=== PATIENT | male | born 1980 | race Caucasian/White ===

== ENCOUNTER → 2020-09-16 11:53 | Outpatient (CLI) | payer OTHER, SELFPAY ==
--- NOTE | ~2020-09-16 | XR_ITS ---
EXAMINATION: XR shoulder LT min 2V EXAM DATE: 09/16/2020 12:13 INDICATION: Pain in left shoulder x 3 months, limited range of motion. No known recent injury. TECHNIQUE: The following left shoulder projections obtained: frontal projection with internal rotatio n, frontal projection with external rotation, Grashey, and scapular Y view (4+ views). There is no p rior study for comparison. FINDINGS: No evidence of left shoulder rotator cuff calcific tendinosis. Unremarkable left glenoh umeral and acromioclavicular joints. There are no acute fractures or dislocations identified. There is no subcutaneous gas. The soft tissue is unremarkable. There are no radiopaque foreign bodies. IMPRESSION: 1. Unremarkable left shoulder exam. Reviewed, dictated and finalized at location B. [employer]
== END ==
PROVIDERS: PCP Physician Assistant; Visit Provider Physician Assistant
DX: M25.512 Pain in left shoulder (principal)
CPT/HCPCS: 73030

== ENCOUNTER 2025-10-11 11:20 | Day surgery (SDC) | payer OTHER, SELFPAY ==
[2025-09-29 09:47] VITALS: BMI 27.5
[2025-10-11 11:50] VITALS: BMI 27.9
[2025-10-11 11:52] VITALS: BP 121/95; PULSE 80; RESP 16; TEMP 36.8; O2SAT 99
--- NOTE | 2025-10-11 11:55 | P.PNAN_ITS ---
Anes - Initial Pre Proc Eval Procedure: Operation Date: 10/11/25 13:00 Proposed Procedures p Screening Colonoscopy - Chago Negron MD Date/Time: 10/11/25 11:55 Surgeon: Chago Negron MD Pre Op Diagnosis: Screening Patient Data Age: 45 Gender: M Height: 1.78 m Weight: 88.3 kg Last Vital Signs Temp 98.3 F 10/11/25 11:52 Pulse 80 10/11/25 11:52 Resp 16 10/11/25 11:52 BP 121/95 H 10/11/25 11:52 Pulse Ox 99 10/11/25 11:52 O2 Del Method Room Air 10/11/25 11:52 Allergies Allergy/AdvReac Type Severity Reaction Status Date / Time No Known Allergies Allergy Verified 10/11/25 11:34 Home Medications ?Medication ?Instructions ?Recorded ?Confirmed ?Type minoxidil-finasteride 1 tablet PO DAILY 09/29/25 1 12/12/24 History Patient hx anesthesia problems: none Family hx anesthesia problems: none Results Review: All pre-operative results and documents have been reviewed as part of the pre- operative evaluation. [facility] Social History Social History Smoking status: Current some day smoker Tobacco type: cigars Alcohol intake: current Drinks per week: 3 Substance use type: does not use Living arrangements: with family Spiritual care concerns: No Anes - Eval Final PreProcedure Day of Procedure 10/11/25 11:55 Heart: regular rate and rhythm Lungs: clear to auscultation Airway: Mallampati scale class II Neurological: alert and oriented Last oral intake: >/= 8 hours ASA classification: I Anesthetic plan: proceed Anesthesia type and monitoring: general Results Review: All pre-operative results and documents have been reviewed as part of the pre- operative evaluation. Informed Consent: The patient's anesthetic plan and its attendant risks and benefits were discussed with the patient/family/POA. Questions were solicited and answers provided to the satisfaction of the patient/family/POA.
[2025-10-11] MEDS: LACTATED RINGERS 1,000 ML 150 ML IV CONT (11:56)
--- NOTE | 2025-10-11 11:57 | P.HP_ITS ---
H&P: HPI History of Present Illness Date/Time: 10/11/25 11:57 Chief Complaint: Screening colonoscopy Narrative: This is the patient's first colonoscopy. There are no GI symptoms and there is no family history of colorectal cancer. his mother had colon polyps at age 60. Review of Systems Review of Systems: All systems reviewed & are unremarkable except as noted in HPI and below PMFSH Social History Social History Smoking status: Current some day smoker Tobacco type: cigars Alcohol intake: current Drinks per week: 3 Substance use type: does not use Living arrangements: with family Spiritual care concerns: No Meds Home Medications and Allergies Home Medications ?Medication ?Instructions ?Recorded ?Confirmed ?Type minoxidil-finasteride 1 tablet PO DAILY 09/29/25 1 12/12/24 History Allergies Allergy/AdvReac Type Severity Reaction Status Date / Time No Known Allergies Allergy Verified 10/11/25 11:34 Vital Signs Vital Signs - 24 hr 10/11/25 11:52 Temperature 98.3 F Pulse Rate 80 Respiratory Rate 16 Blood Pressure 121/95 H Pulse Oximetry 99 Oxygen Delivery Room Air Exam Const: General: cooperative and healthy appearing Resp: Effort & Inspection: normal respiratory effort and able to speak in complete sentences Auscultation: clear to auscultation bilaterally Cardio: Rate: regular rate Rhythm: regular rhythm GI: Inspection: normal to inspection GI Palp: No No hepatosplenomegaly present Auscultation: normal bowel sounds Rectal Exam: deferred Skin: General skin exam: normal color Psych: Appearance: grossly normal Mental Status: mental status grossly normal Assessment and Plan Assessment and plan (1) Family history of polyps in the colon: Code(s): Z83.719 - Family history of colon polyps, unspecified Status: Acute Assessment and Plan: The patient is deemed a good candidate for the procedure. Consent signed. Will proceed.
[2025-10-11 12:19] VITALS: BP 102/82; PULSE 89; RESP 15; O2SAT 98
[2025-10-11 12:29] VITALS: BP 106/91; PULSE 82; RESP 18; O2SAT 99
[2025-10-11 12:39] VITALS: BP 121/95; PULSE 79; RESP 16; O2SAT 99
--- NOTE | 2025-10-11 13:00 | SUR.PHASEII ---
PATIENT READY FOR DISCHARGE BUT WAITING ON RIDE HOME.
--- OUTSIDE RECORDS SUMMARY | 2025-10-11 13:00 | XMS_ITS | Data Portability ---
Author Organization [facility] Address [address] [facility] [place] [address] Care Team Providers Care Wind Project Manager Name Role Phone BRAULIO MELENDEZ Primary Care Provider Unavailab le Assessment No assessment recorded. Plan of Treatment Reminders Order Date Submit Date Provider Last Modified By Organization Details Last Modified Time Details Appointments ANY 15 2025 03:30P M CHRISTEN Vasquez Not available Not available Not available Lab TSH + free T4, serum 2024 025 MILAGROS Del Valle, 2022 Shona Rosado, [address], [place], [address], 01/15/2025 09:08:50 lipid panel, serum or plasma 2024 025 MILAGROS Del Valle, 2022 Shona Rosaod, [address], [place], [address], 01/15/2025 09:08:51 CBC w/ auto diff 2024 025 MILAGROS Del Valle, 2022 Shona Rosado, [address], [place], [address], 01/15/2025 09:08:56 CMP, serum or plasma 2024 025 MILAGROS Del Valle, 2022 Shona Rosado, [address], [place], [address], 01/15/2025 09:08:52 cobalamin and folate panel, serum 2024 025 MILAGROS Del Valle, 2022 Shona Rosado, [address], [place], [address], 01/15/2025 09:08:53 PSA, total, serum or plasma 2024 025 [place] [facility], 2022 Shona Rosado, [address], [place], [address], 01/15/2025 09:08:57 HbA1c (hemoglob in A1c), blood 2024 025 [place] [facility], 2022 Shona Rosado, [address], [place], [address], 01/15/2025 09:08:55 Referral None recorded. Procedures colonosco py screening (PROC) 2024 025 [id number] Jakob jung MD, [address], [address], [place], [address], 08/27/2025 12:03:08 Surgeries None recorded. Imaging None recorded. Medication Orders venlafaxi ne ER 37.5 mg capsule,e xtended release 24 hr 2024 025 [id number], [address] [facility], [place], [place], [id number], 12/21/2024 16:28:41 Patient TargetsNo targets recorded. Patient Instructions Encounter Date Encounter Id Patient Instructions Last Modified By Organization Details Last Modified Time 12/21/2024 [id number] A healthy lifestyle: care instructions Not available 01/09/2025 20:05:08 01/26/2025 [id number] A healthy lifestyle: care instructions Not available 01/26/2025 17:00:22 Reason for Referral None Reported. Results Created Date Observation Date Name Description Value Unit Range Abnormal Flag Note LastModifiedBy Organization Detail LastModifiedTime 01/15/20 25 01/15/2025 TSH+F REE T4 TSH 2.050 uIU/m L 0.450- 4.500 Not Available [facility] ([facility]) [address] [facility], [place], [address], 01/15/2025 09:08:50 01/15/20 25 01/15/2025 TSH+F REE T4 T4,free(dire ct) 1.06 NG/dL 0.82-1 .77 Not Available [facility] ([facility]) [address] [facility], [place], [address], 01/15/2025 09:08:50 01/15/20 25 01/15/2025 LIPID PANEL WITH LDL/H DL RATIO cholesterol, total 212 mg/dL 100-19 9 above high normal Not Available [facility] ([facility]) [address] [place], [address], 01/15/2025 09:08:51 01/15/20 25 01/15/2025 LIPID PANEL WITH LDL/H DL RATIO triglyceride s 91 mg/dL 0-149 Not Available [facility] ([facility]) [address] [place], [address], 01/15/2025 09:08:51 01/15/20 25 01/15/2025 LIPID PANEL WITH LDL/H DL RATIO HDL cholesterol 47 mg/dL >39 Not Available [facility] ([facility]) [address] [place], [address], 01/15/2025 09:08:51 01/15/20 25 01/15/2025 LIPID PANEL WITH LDL/H DL RATIO VLDL cholesterol pradip 16 mg/dL 5-40 Not Available [facility] ([facility]) [address] [place], [address], 01/15/2025 09:08:51 01/15/20 25 01/15/2025 LIPID PANEL WITH LDL/H DL RATIO LDL chol calc ([facility]) 149 mg/dL 0-99 above high normal Not Available [facility] ([facility]) [address] [place], [address], 01/15/2025 09:08:51 01/15/20 25 01/15/2025 LIPID PANEL WITH LDL/H DL RATIO LDL/HDL ratio 3.2 ratio 0.0-3. 6 LDL/H DL Ratio Men Women 1/2 Avg.R isk 1.0 1.5 Avg.R isk 3.6 3.2 2X Avg.R isk 6.2 5.0 3X Avg.R isk 8.0 6.1 Not Available [facility] ([facility]) [address] [place], [address], 01/15/2025 09:08:51 01/15/20 25 01/15/2025 COMP. METAB OLIC PANEL (14) glucose 86 mg/dL 70-99 Not Available [facility] ([facility]) [address] [place], [address], 01/15/2025 09:08:52 01/15/20 25 01/15/2025 COMP. METAB OLIC PANEL (14) BUN 13 mg/dL 6-24 Not Available [facility] ([facility]) [address] [place], [address], 01/15/2025 09:08:52 01/15/20 25 01/15/2025 COMP. METAB OLIC PANEL (14) creatinine 1.04 mg/dL 0.76-1 .27 Not Available [facility] ([facility]) [address] [place], [address], 01/15/2025 09:08:52 01/15/20 25 01/15/2025 COMP. METAB OLIC PANEL (14) eGFR 90 mL/mi n/1.7 3 >59 Not Available [facility] ([facility]) [address] [place], [address], 01/15/2025 09:08:52 01/15/20 25 01/15/2025 COMP. METAB OLIC PANEL (14) BUN/creatini ne ratio 13 9-20 Not Available [facility] ([facility]) [address] [place], [address], 01/15/2025 09:08:52 01/15/20 25 01/15/2025 COMP. METAB OLIC PANEL (14) sodium 139 mmol/ L 134-14 4 Not Available [facility] ([facility]) [address] [place], [address], 01/15/2025 09:08:52 01/15/20 25 01/15/2025 COMP. METAB OLIC PANEL (14) potassium 4.2 mmol/ L 3.5-5. 2 Not Available [facility] ([facility]) [address] [place], [address], 01/15/2025 09:08:52 01/15/20 25 01/15/2025 COMP. METAB OLIC PANEL (14) chloride 101 mmol/ L 96-106 Not Available [facility] ([facility]) [address] [place], [address], 01/15/2025 09:08:52 01/15/20 25 01/15/2025 COMP. METAB OLIC PANEL (14) carbon dioxide, total 24 mmol/ L 20-29 Not Available [facility] ([facility]) [address] [place], [address], 01/15/2025 09:08:52 01/15/20 25 01/15/2025 COMP. METAB OLIC PANEL (14) calcium 9.4 mg/dL 8.7-10 .2 Not Available [facility] ([facility]) [address] [place], [address], 01/15/2025 09:08:52 01/15/20 25 01/15/2025 COMP. METAB OLIC PANEL (14) protein, total 7.1 g/dL 6.0-8. 5 Not Available [facility] ([facility]) [address] [place], [address], 01/15/2025 09:08:52 01/15/20 25 01/15/2025 COMP. METAB OLIC PANEL (14) albumin 4.4 g/dL 4.1-5. 1 Not Available [facility] ([facility]) [address] [facility] [place], [address], 01/15/2025 09:08:52 01/15/20 25 01/15/2025 COMP. METAB OLIC PANEL (14) globulin, total 2.7 g/dL 1.5-4. 5 Not Available [facility] ([facility]) [address] [facility] [place], [address], 01/15/2025 09:08:52 01/15/20 25 01/15/2025 COMP. METAB OLIC PANEL (14) bilirubin, total 0.6 mg/dL 0.0-1. 2 Not Available [facility] ([facility]) [address] [facility] [place], [address], 01/15/2025 09:08:52 01/15/20 25 01/15/2025 COMP. METAB OLIC PANEL (14) alkaline phosphatase 78 IU/L 44-121 Not Available [facility] ([facility]) [address] [place], [address], 01/15/2025 09:08:52 01/15/20 25 01/15/2025 COMP. METAB OLIC PANEL (14) AST (SGOT) 34 IU/L 0-40 Not Available [facility] ([facility]) [address] [place], [address], 01/15/2025 09:08:52 01/15/20 25 01/15/2025 COMP. METAB OLIC PANEL (14) ALT (SGPT) 25 IU/L 0-44 Not Available [facility] ([facility]) [address] [facility], [place], [address], 01/15/2025 09:08:52 01/15/20 25 01/15/2025 VITAM IN B12 AND FOLAT E vitamin B12 381 pg/mL 232-12 45 Not Available [facility] ([facility]) [address] [facility], [place], [address], 01/15/2025 09:08:53 01/15/20 25 01/15/2025 VITAM IN B12 AND FOLAT E folate (folic acid), serum 11.6 NG/mL >3.0 A serum folat e asiya ntrat ion of less than 3.1 ng/mL is consi dered to repre sent clini pradip defic iency . Not Available [facility] ([facility]) [address] [facility], [place], [address], 01/15/2025 09:08:53 01/15/2001/15/2025 HEMOG LOBIN A1C hemoglobin A1C 5.3 % 4.8-5. 6 Predi abete s: 5.7 - 6.4 Diabe mikie: >6.4 Glyce rod contr ol for adult s with diabe mikie: <7.0 Not Available [facility] ([facility]) [address] [facility], [place], [address], 01/15/2025 09:08:54 01/15/20 25 01/15/2025 CBC WITH DIFFE RENTI AL/PL ATELE T WBC 6.7 x10e3 /uL 3.4-10 .8 Not Available [facility] ([facility]) [address] [place], [address], 01/15/2025 09:08:55 01/15/20 25 01/15/2025 CBC WITH DIFFE RENTI AL/PL ATELE T RBC 4.50 x10e6 /uL 4.14-5 .80 Not Available [facility] ([facility]) [address] [place], [address], 01/15/2025 09:08:55 01/15/20 25 01/15/2025 CBC WITH DIFFE RENTI AL/PL ATELE T hemoglobin 13.7 g/dL 13.0-1 7.7 Not Available [facility] ([facility]) [address] [facility], [place], [address], 01/15/2025 09:08:55 01/15/20 25 01/15/2025 CBC WITH DIFFE RENTI AL/PL ATELE T hematocrit 40.2 % 37.5-5 1.0 Not Available [facility] ([facility]) [address] [facility], [place], [address], 01/15/2025 09:08:55 01/15/20 25 01/15/2025 CBC WITH DIFFE RENTI AL/PL ATELE T MCV 89 fL 79-97 Not Available [facility] ([facility]) [address] [facility], [place], [address], 01/15/2025 09:08:55 01/15/20 25 01/15/2025 CBC WITH DIFFE RENTI AL/PL ATELE T MCH 30.4 pg 26.6-3 3.0 Not Available [facility] ([facility]) [address] [facility], [place], [address], 01/15/2025 09:08:55 01/15/20 25 01/15/2025 CBC WITH DIFFE RENTI AL/PL ATELE T MCHC 34.1 g/dL 31.5-3 5.7 Not Available [facility] ([facility]) [address] [place], [address], 01/15/2025 09:08:55 01/15/20 25 01/15/2025 CBC WITH DIFFE RENTI AL/PL ATELE T RDW 12.9 % 11.6-1 5.4 Not Available [facility] ([facility]) [address] [facility], [place], [address], 01/15/2025 09:08:55 01/15/20 25 01/15/2025 CBC WITH DIFFE RENTI AL/PL ATELE T platelets 295 x10e3 /uL 150-45 0 Not Available [facility] ([facility]) [address] [facility], [place], [address], 01/15/2025 09:08:55 01/15/20 25 01/15/2025 CBC WITH DIFFE RENTI AL/PL ATELE T neutrophils 44 % notest ab. Not Available [facility] ([facility]) [address] [facility], [place], [address], 01/15/2025 09:08:55 01/15/20 25 01/15/2025 CBC WITH DIFFE RENTI AL/PL ATELE T lymphs 43 % notest ab. Not Available [facility] ([facility]) [address] [facility], [place], [address], 01/15/2025 09:08:55 01/15/20 25 01/15/2025 CBC WITH DIFFE RENTI AL/PL ATELE T monocytes 8 % notest ab. Not Available [facility] ([facility]) [address] [facility], [place], [address], 01/15/2025 09:08:55 01/15/20 25 01/15/2025 CBC WITH DIFFE RENTI AL/PL ATELE T eos 4 % notest ab. Not Available [facility] ([facility]) [address] [facility], [place], [address], 01/15/2025 09:08:55 01/15/20 25 01/15/2025 CBC WITH DIFFE RENTI AL/PL ATELE T basos 1 % notest ab. Not Available [facility] ([facility]) [address] [facility], [place], [address], 01/15/2025 09:08:55 01/15/20 25 01/15/2025 CBC WITH DIFFE RENTI AL/PL ATELE T neutrophils (absolute) 3.0 x10e3 /uL 1.4-7. 0 Not Available [facility] ([facility]) [address] [facility], [place], [address], 01/15/2025 09:08:55 01/15/20 25 01/15/2025 CBC WITH DIFFE RENTI AL/PL ATELE T lymphs (absolute) 2.9 x10e3 /uL 0.7-3. 1 Not Available [facility] ([facility]) [address] [facility], [place], [address], 01/15/2025 09:08:55 01/15/20 25 01/15/2025 CBC WITH DIFFE RENTI AL/PL ATELE T monocytes(ab solute) 0.5 x10e3 /uL 0.1-0. 9 Not Available [facility] ([facility]) [address] [place], [address], 01/15/2025 09:08:55 01/15/20 25 01/15/2025 CBC WITH DIFFE RENTI AL/PL ATELE T eos (absolute) 0.3 x10e3 /uL 0.0-0. 4 Not Available [facility] ([facility]) [address] [facility], [place], [address], 01/15/2025 09:08:55 01/15/20 25 01/15/2025 CBC WITH DIFFE RENTI AL/PL ATELE T baso (absolute) 0.1 x10e3 /uL 0.0-0. 2 Not Available [facility] ([facility]) [address] [facility], [place], [address], 01/15/2025 09:08:55 01/15/20 25 01/15/2025 CBC WITH DIFFE RENTI AL/PL ATELE T immature granulocytes 0 % notest ab. Not Available [facility] ([facility]) [address] [place], [address], 01/15/2025 09:08:55 01/15/20 25 01/15/2025 CBC WITH DIFFE RENTI AL/PL ATELE T immature grans (abs) 0.0 x10e3 /uL 0.0-0. 1 Not Available [facility] ([facility]) [address] [facility], [place], [address], 01/15/2025 09:08:55 01/15/20 25 01/15/2025 PROST ATE-S PECIF IC AG prostate specific Ag 0.2 NG/mL 0.0-4. 0 Camilla ECLIA metho dolog y. Accor ding to the Ameri can Urolo gical Assoc iatio n, Serum PSA shoul d decre ase and remai n at undet ectab le level s after radic al prost atect key. The AUA defin es bioch emica l recur rence as an initi al PSA value 0.2 ng/mL or great er follo wed by a subse quent confi rmato ry PSA value 0.2 ng/mL or great er. Value s obtai dean with diffe rent assay metho ds or kits canno t be used inter chandra eamichelle . Resul ts canno t be inter prete d as absol minor evide nce of the prese nce or absen ce of lexy ashby se. Not Available [facility] ([facility]) [address] [facility], [place], [address], 01/15/2025 09:08:57 Result Notes None recorded. Problems Name Problem SNOMED Code Status Onset Date Resolution Date Notes Provider Name and Address Organization Details Recorded Time Body mass index 25-29 - overweight 618669344 Active 2024 Andria Uribe MA null, [place] - [facility] 15:40:15 Long-term drug therapy Active 2024 CHRISTEN Vasquez Attn: Rupali solomon,[address] [facility], [place], [address], [place] [facility] 20:04:29 Positive screening for depression on PHQ-9 (Patient Health Questionnai re 9) 3775034361729 00 Active 2024 CHRISTEN Vasquez Attn: Rupali solomon,[address] [facility], [place], [address], [place] - [facility] 20:04:57 Overweight 537772507 Active 2024 CHRISTEN Vasquez Attn: Accountin g,[address] [place], [address], [facility] 18:07:11 Problem Notes None recorded. Medical Equipment None Reported. Allergies No known drug allergies Medications Name Sig Start Date Stop Date Status Note LastModified by Organization Details LastModified Time venlafaxine ER 37.5 mg capsule,exten ded release 24 hr Take 1 capsule every day by oral route in the morning. 025 active Not Available Not Available Not Avai lable Vitals Date Recorded Systolic And Diastolic Provider Name and Address Organization Details Last Updated DateTime 12/21/2024 140/80 mm[Hg] CHRISTEN Vasquez Attn: Accounting,[address] [place], [address], [facility] 12/21/2024 16:24:46 Date Recorded Body weight Body mass index (BMI) Body height Respiratory rate Oxygen saturation Heart rate Systolic And Diastolic Provider Name and Address Organization Details Last Updated DateTime 5 08636.7 4 g 27.5 kg/m2 177.8 cm 18 /min 99 % 85 /min 138/82 mm[Hg] Andria Uribe MA [facility] 15:46:54 Date Recorded Body height Body mass index (BMI) Body weight Respiratory rate Oxygen saturation Heart rate Systolic And Diastolic Provider Name and Address Organization Details Last Updated DateTime 5 177.8 cm 26.8 kg/m2 78524.7 7 g 18 /min 97 % 88 /min 126/82 mm[Hg] Andria Uribe MA [facility] 5 16:21:55 Social History Question Answer Notes LastModified by Organizat ion Details LastModified Time Tobacco Smoking Status Never Smoker Andria Uribe MA null, [facility] 12/21/2024 16:27:04 Do You Have An Advance Directive? No Information not available 12/21/2024 Are You Blind Or Do You Have Difficulty Seeing? Yes Glasses Information not available 12/21/2024 What Is Your Level Of Caffeine Consumption? Moderate Coffee Information not available 12/21/2024 In The 14 Days Before Symptom Onset, Have You Had Close Contact With A Laboratory-confir med COVID-19 While That Case Was Ill? No Information not available 12/21/2024 In The 14 Days Before Symptom Onset, Have You Had Close Contact With A Person Who Is Under Investigation For COVID-19 While That Person Was Ill? No Information not available 12/21/2024 Have You Been To An Area Known To Be High Risk For COVID-19? No Information not available 12/21/2024 Are You Deaf Or Do You Have Serious Difficulty Hearing? No Information not available 12/21/2024 What Type Of Diet Are You Following? REGULAR Information not available 12/21/2024 Are There Any Guns Present In Your Home? No Information not available 12/21/2024 What Was The Date Of Your Most Recent Tobacco Screening? 01/26/2025 Information not available 01/26/2025 Do You Use Your Seat Belt Or Car Seat Routinely? Yes Information not available 12/21/2024 Do You Have Smoke And Carbon Monoxide Detectors In Your Home? Yes Information not available 12/21/2024 Do You Use Sunscreen Routinely? Yes Information not available 12/21/2024 Has Tobacco Cessation Counseling Been Provided? No Information not available 12/21/2024 Sex: Male Functional Status Question Answer Note LastModified by Organizat ion Details LastModified Time Do you use any illicit or recreational drugs? No Information not available 12/21/2024 Do you or have you ever used any other forms of tobacco or nicotine? No Information not available 12/21/2024 What is your level of alcohol consumption? Occasional Information not available 12/21/2024 Are you currently employed? Yes Information not available 12/21/2024 Are you able to care for yourself independently? Yes Information not available 12/21/2024 What is your exercise level? Occasional rare Information not available 12/21/2024 Mental Status Question Answer Note LastModified by Organization D etails LastModified Time Do you feel stressed (tense, restless, nervous, or anxious, or unable to sleep at night)? [id number] Information not available 12/21/2024 Family History Relationship Description Onset Age of this Age Resolved Age Notes LastModified by Organization Details LastModified Time Father Hypertensive disorder [email or web address] Not available 2024 16:26:32 Father Hypercholest erolemia [email or web address] Not available 2024 16:26:37 Medical History Condition Response Coronary Artery Disease N Other N High Blood Pressure N Atrial Fibrillation N Thyroid Problems N Kidney or Bladder Problems N GI Problems N Depression N COPD N Blood Clots N Have you had a mammogram in the last yea r? N Skin Problems N Anemia N Heart Attack ([place]) N Diabetes N Anxiety Disorder N Muscle, Joint, or Bone Problems N Seizures/Epilepsy N Have you had a colonoscopy in the last 1 0 years? N Acid Reflux (GERD) N Cancer N Stroke N Asthma N Allergies N Have you had a PSA blood test in the las t year? N High Cholesterol N Hepatitis N Liver Disease N Headaches N Osteoporosis N Heart Failure N Immunizations Vaccine Type Date Status Note Provider Nam e and Address Organization Details Recorded Time MMR 2 completed Andria Uribe [place] null, [place] [facility] 12/21/2024 15:42:16 COVID-19, mRNA, LNP-S, PF, 100 mcg/0.5mL dose or 50 mcg/0.25mL dose 2 completed Andria Uribe [place] null, [place] [facility] 12/21/2024 15:42:16 COVID-19, mRNA, LNP-S, PF, 100 mcg/0.5mL dose or 50 mcg/0.25mL dose 1 completed JAREK Bartholomew, [place] - [facility] 12/21/2024 15:42:16 COVID-19, mRNA, LNP-S, PF, 100 mcg/0.5mL dose or 50 mcg/0.25mL dose 1 completed JAREK Bartholomew, [place] - [facility] 12/21/2024 15:42:16 Td (adult), 2 Lf tetanus toxoid, preservative free, adsorbed 2 completed Andria Uribe MA [facility] 12/21/2024 15:42:16 Past Encounters Encounter ID Performer Location Encounter Start Date Encounter Closed Date Diagnosis/Indication Diagnosis SNOMED-CT Code Diagnosis ICD10 Code Diagnosis IMO Codes Diagnosis Note [id number] Duke Anderson MD [facility] [address] [place] [address] 12/21/2024 15:23:18 12/21/2024 16:30:41 Body mass index 25-29 - overweight 333864038 Z68.27 BMI is 27.5 Adult heal th examination 380536499 Z00.01 Annual wellness exam completed all labs ordered fasting Cholesterol screening 27 0539783 Z13.220 All fasting labs ordered Diabetes m ellitus screening 829472254 Z13.1 Screening for malignant neoplasm of prostate 412066467 Z12.5 Annual PSA due Long-term drug therapy 444105950 Z79.891 cmp, cbc and b12, folate labs are due Thyroid di sorder screening 667213278 Z13.29 Thyroid screening ordered Major depr essive disorder 164297922 F32.9 Patient has been off of the Wellbutrin therapy he used to be on. We will start a trial of venlafaxin e 37.5 mg extended release once daily and follow-up January 26 Positive s creening for depression on PHQ-9 (Patient Health Questionnaire 9) 7062049059 68791 Z13.31 Patient scored a 21 on screening today. This high score revolves around his depression exacerbati on in the need for new treatment. We are starting Effexor low dose and will titrate up appropriat maliha if tolerated. Screening for malignant neoplasm of colon 079135642 Z12.11 Baseline colonoscop y is due Obesity 168380640 E66.9 BMI 27.5 [id number] Duke Anderson MD [facility] [employer] [address] [place] [address] 01/26/2025 16:14:05 02/04/2025 15:27:51 Body mass index 25-29 - overweight 783440504 Z68.26 BMI 26.8 Overweight 515139595 E66 .3 Major depr essive disorder 239721968 F32.9 Continue venlafaxin e ER 37.5 mg daily patient has had very positive response to treatment and would like to continue this dosing. Positive s creening for depression on PHQ-9 (Patient Health Questionnaire 9) 1296287773 24891 Z13.31 Scoring is down to 9 from 21 after starting venlafaxin e therapy. Great improvemen t in his short amount of time Health Concerns Section Related Observation LastModified by Organization Detai ls LastModified Time None Recorded Concern Status LastModified by Organization Details LastModified Time None Recorded Advance Directives Directive N: Payers Insurance Date Sequence Insurance Name Policy Number Policy Quarles Covered Member ID Quarles Member ID Guarantor Name 02/11/2025 1 [facility] [id number] [employer] [id number] [employer] Notes Date Note Type Note Provider Name and Address Organization Details Recorded Time 12/21/19 25 text/htm l Anxiety/DepressionReported by PatientHPIFor quality, patient reportssymptoms worse in the evening,symptoms worse during the day, andmood worse. For associated symptoms, patient reportsdepressionbut reportsdenies homicidal ideations,no significant weight gain,no significant weight loss,no visual/auditory hallucinations,no delusions, andmaintaining functionality. For severity, patient reportsdenies suicidal ideations,able to maintain relationships, anddoes not interfere with activities of daily living. For duration, patient reportsfrequentandsymptoms lasting over 2 weeks. For context, patient reportsno major life stressors. For modifying factors, patient reportsmedications as directed. CHRISTEN Vasquez Attn: Accounting,[address] [place], [address], [facility] 01/09/2025 20:05:28 01/27/20 25 text/htm l Anxiety/DepressionReported by PatientHPIFor associated symptoms, patient reportsdepressionbut reportsdenies homicidal ideations,no significant weight gain,no significant weight loss,no visual/auditory hallucinations,no delusions, andmaintaining functionality. For quality, patient reportssymptoms improved. For severity, patient reportsdenies suicidal ideations,able to maintain relationships, anddoes not interfere with activities of daily living. For duration, patient reportsfrequentandsymptoms lasting over 2 weeks. For context, patient reportsno major life stressors. For modifying factors, patient reportsmedications as directed.Patient is following up on starting a new medication venlafaxine ER 37.5 mg daily for major depressive disorder. He is having improvement in mood that is noticeable and he is pleased with this dosing CHRISTEN Vasquez Attn: Accounting,[address] [place], [address], [facility] 02/10/2025 18:08:01
--- OUTSIDE RECORDS SUMMARY | 2025-10-11 13:00 | XMS_ITS | Clinical Summary ---
Author Organization [facility] Care Team Providers Care Design Engineering Intern Name Role Phone Unavailable Primary Care Provider Unavailabl e Social History Tobacco Use Types Packs/Day Years Used Date Smoking Tobacco: Never Assessed Sex and Gender Information Value Date Recorded Sex Assigned at Not on file Legal Sex Male 10:03 AM [employer] Gender Identity Not on file Sexual Orientation Not on file Plan of Treatment Health Maintenance Due Date Last Done Comments Hepatitis C Virus (HCV) Screening 1978 TdaP Immunization 1978 Hepatitis B Immunization (1 of 3 - 19+ 3-dose series) 1997 Cologuard 2023 Colonoscopy 2023 Colorectal Cancer Screening 2023 Immunochemical Fecal Occult Blood 2023 Influenza Immunization (#1) 2025 SARS-COV-2 Immunization ( season) 2025 Respiratory Syncytial Virus (RSV) Immunization (Adult) (1 - 1-dose 75+ series) 2053 DTaP/Tdap/Td Immunization Discontinued 07/02/1992 Human Papillomavirus (HPV) Immunization Aged Out No longer eligible b ased on patient's age to complete this topic Meningococcal Immunization (ACWY) Aged Out No longer eligible based on patient's age to complete this topic Pneumococcal Immunization Combined Aged Out No longer eligible based on patient's age to complete this topic Rotavirus Immunization Aged Out No lo nger eligible based on patient's age to complete this topic
--- OUTSIDE RECORDS SUMMARY | 2025-10-11 13:00 | XMS_ITS | Data Portability ---
Author Organization [place] - [facility] [email or web address], Main Office Address [address] [place] [address] Assessment No assessment recorded. Plan of Treatment Reminders Order Date Submit Date Provider Last Modified By Organization Details Last Modified Time Details Appointments None recorded. Lab testosteron e, free + total, serum 2022 023 [email or web address] 4 [facility], 2022 Shona Rosado, [address], [place], [address], 3 16:55:07 PSA, serum or plasma 2022 023 [email or web address] 4 [facility], 2022 Shona Rosado, [address], [place], [address], 3 16:55:06 urinalysis complete, reflex culture 2022 023 [email or web address] [facility], 2022 Shona Rosado, [address], [place], [address], 3 16:50:48 Referral None recorded. Procedures None recorded. Surgeries None recorded. Imaging None recorded. Medication Orders None recorded. Patient TargetsNo targets recorded. Patient InstructionsNo instructions recorded. Reason for Referral None Reported. Results Created Date Observation Date Name Description Value Unit Range Abnormal Flag Note LastModifiedBy Organization Detail LastModifiedTime 03/17/2003/18/2021 HbA1c (hemo globi n A1c), blood hemoglobin A1C 5.4 % 4.8-5. 6 Predi abete s: 5.7 - 6.4 Diabe mikie: >6.4 Glyce rod contr ol for adult s with diabe mikie: <7.0 Not Available [facility] ([facility]) [address] [facility] [place], [address], 03/18/2021 06:14:44 03/17/20 21 03/18/2021 lipid panel , serum cholesterol, total 231 mg/dL 100-19 9 above high normal Not Available [facility] ([facility]) [address] [facility] [place], [address], 03/18/2021 06:14:43 03/17/20 21 03/18/2021 lipid panel , serum triglyceride s 198 mg/dL 0-149 above high normal Not Available [facility] ([facility]) [address] [facility] [place], [address], 03/18/2021 06:14:43 03/17/20 21 03/18/2021 lipid panel , serum HDL cholesterol 47 mg/dL >39 Not Available [facility] ([facility]) [address] [place], [address], 03/18/2021 06:14:43 03/17/20 21 03/18/2021 lipid panel , serum VLDL cholesterol pradip 36 mg/dL 5-40 Not Available [facility] ([facility]) [address] [place], [address], 03/18/2021 06:14:43 03/17/20 21 03/18/2021 lipid panel , serum LDL chol calc ([facility]) 148 mg/dL 0-99 above high normal Not Available [facility] ([facility]) [address] [place], [address], 03/18/2021 06:14:43 03/17/20 21 03/18/2021 lipid panel , serum comment: cloth handler Not Available [facility] ([facility]) [address] [place], [address], 03/18/2021 06:14:43 03/17/20 21 03/18/2021 lipid panel , serum T. chol/HDL ratio 4.9 ratio 0.0-5. 0 T. Chol/ HDL Ratio Men Women 1/2 Avg.R isk 3.4 3.3 Avg.R isk 5.0 4.4 2X Avg.R isk 9.6 7.1 3X Avg.R isk 23.4 11.0 Not Available [facility] ([facility]) [address] [place], [address], 03/18/2021 06:14:43 03/17/20 21 03/18/2021 urina lysis , dipst ick specific gravity 1.026 1.005- 1.030 Not Available [facility] ([facility]) [address] [place], [address], 03/18/2021 06:14:43 03/17/20 21 03/18/2021 urina lysis , dipst ick pH 7.0 5.0-7. 5 Not Available [facility] ([facility]) [address] [place], [address], 03/18/2021 06:14:43 03/17/20 21 03/18/2021 urina lysis , dipst ick urine-color yellow yellow Not Available [facility] ([facility]) [address] [place], [address], 03/18/2021 06:14:43 03/17/20 21 03/18/2021 urina lysis , dipst ick appearance clear clear Not Available [facility] ([facility]) [address] [place], [address], 03/18/2021 06:14:43 03/17/2003/18/2021 urina lysis , dipst ick WBC esterase negati ve negati ve Not Available [facility] ([facility]) [address] [place], [address], 03/18/2021 06:14:43 03/17/20 21 03/18/2021 urina lysis , dipst ick protein negati ve negati ve/tra ce Not Available [facility] ([facility]) [address] [place], [address], 03/18/2021 06:14:43 03/17/2003/18/2021 urina lysis , dipst ick glucose negati ve negati ve Not Available [facility] ([facility]) [address] [place], [address], 03/18/2021 06:14:43 03/17/2003/18/2021 urina lysis , dipst ick ketones trace negati ve abnormal Not Available [facility] ([facility]) [address] [place], [address], 03/18/2021 06:14:43 03/17/2003/18/2021 urina lysis , dipst ick occult blood negati ve negati ve Not Available [facility] ([facility]) [address] [place], [address], 03/18/2021 06:14:43 03/17/2003/18/2021 urina lysis , dipst ick bilirubin negati ve negati ve Not Available [facility] ([facility]) [address] [place], [address], 03/18/2021 06:14:43 03/17/2003/18/2021 urina lysis , dipst ick urobilinogen ,semi-qn 0.2 mg/dL 0.2-1. 0 Not Available [facility] ([facility]) [address] [place], [address], 03/18/2021 06:14:43 03/17/2003/18/2021 urina lysis , dipst ick nitrite, urine negati ve negati ve Not Available [facility] ([facility]) [address] [place], [address], 03/18/2021 06:14:43 03/17/20 21 03/18/2021 urina lysis , dipst ick microscopic examination commen t Micro scopi c not indic ated and not perfo rmed. Not Available [facility] ([facility]) [address] [facility] [address], [place], [address], 03/18/2021 06:14:43 03/17/20 21 03/18/2021 CBC w/ auto diff WBC 10.3 x10e3 /uL 3.4-10 .8 Not Available [facility] ([facility]) [address] [place], [address], 03/18/2021 06:14:42 03/17/2003/18/2021 CBC w/ auto diff RBC 4.66 x10e6 /uL 4.14-5 .80 Not Available [facility] ([facility]) [address] [place], [address], 03/18/2021 06:14:42 03/17/20 21 03/18/2021 CBC w/ auto diff hemoglobin 14.1 g/dL 13.0-1 7.7 Not Available [facility] ([facility]) [address] [place], [address], 03/18/2021 06:14:42 03/17/2003/18/2021 CBC w/ auto diff hematocrit 41.2 % 37.5-5 1.0 Not Available [facility] ([facility]) [address] [place], [address], 03/18/2021 06:14:42 03/17/2003/18/2021 CBC w/ auto diff MCV 88 fL 79-97 Not Available [facility] ([facility]) [address] [place], [address], 03/18/2021 06:14:42 03/17/2003/18/2021 CBC w/ auto diff MCH 30.3 pg 26.6-3 3.0 Not Available [facility] ([facility]) [address] [facility] [address], [place], [address], 03/18/2021 06:14:42 03/17/20 21 03/18/2021 CBC w/ auto diff MCHC 34.2 g/dL 31.5-3 5.7 Not Available [facility] ([facility]) [address] [facility] [address], [place], [address], 03/18/2021 06:14:42 03/17/20 21 03/18/2021 CBC w/ auto diff RDW 13.1 % 11.6-1 5.4 Not Available [facility] ([facility]) [address] [facility] [address], [place], [address], 03/18/2021 06:14:42 03/17/20 21 03/18/2021 CBC w/ auto diff platelets 309 x10e3 /uL 150-45 0 Not Available [facility] ([facility]) [address] [facility] [address], [place], [address], 03/18/2021 06:14:42 03/17/2003/18/2021 CBC w/ auto diff neutrophils 61 % not estab. Not Available [facility] ([facility]) [address] [facility] [address], [place], [address], 03/18/2021 06:14:42 03/17/2003/18/2021 CBC w/ auto diff lymphs 28 % not estab. Not Available [facility] ([facility]) [address] [facility] [address], [place], [address], 03/18/2021 06:14:42 03/17/2003/18/2021 CBC w/ auto diff monocytes 7 % not estab. Not Available [facility] ([facility]) [address] [facility] [address], [place], [address], 03/18/2021 06:14:42 03/17/20 21 03/18/2021 CBC w/ auto diff eos 2 % not estab. Not Available [facility] ([facility]) [address] [place], [address], 03/18/2021 06:14:42 03/17/20 21 03/18/2021 CBC w/ auto diff basos 1 % not estab. Not Available [facility] ([facility]) [address] [place], [address], 03/18/2021 06:14:42 03/17/20 21 03/18/2021 CBC w/ auto diff immature cells cloth handler Not Available [facility] ([facility]) [address] [place], [address], 03/18/2021 06:14:42 03/17/20 21 03/18/2021 CBC w/ auto diff neutrophils (absolute) 6.3 x10e3 /uL 1.4-7. 0 Not Available [facility] ([facility]) [address] [place], [address], 03/18/2021 06:14:42 03/17/2003/18/2021 CBC w/ auto diff lymphs (absolute) 2.9 x10e3 /uL 0.7-3. 1 Not Available [facility] ([facility]) [address] [place], [address], 03/18/2021 06:14:42 03/17/20 21 03/18/2021 CBC w/ auto diff monocytes(ab solute) 0.8 x10e3 /uL 0.1-0. 9 Not Available [facility] ([facility]) [address] [place], [address], 03/18/2021 06:14:42 03/17/20 21 03/18/2021 CBC w/ auto diff eos (absolute) 0.2 x10e3 /uL 0.0-0. 4 Not Available [facility] ([facility]) [address] [facility] [address], [place], [address], 03/18/2021 06:14:42 03/17/2003/18/2021 CBC w/ auto diff baso (absolute) 0.1 x10e3 /uL 0.0-0. 2 Not Available [facility] ([facility]) [address] [facility] [address], [place], [address], 03/18/2021 06:14:42 03/17/20 21 03/18/2021 CBC w/ auto diff immature granulocytes 1 % not estab. Not Available [facility] ([facility]) [address] [facility] [address], [place], [address], 03/18/2021 06:14:42 03/17/2003/18/2021 CBC w/ auto diff immature grans (abs) 0.1 x10e3 /uL 0.0-0. 1 Not Available [facility] ([facility]) [address] [facility] [address], [place], [address], 03/18/2021 06:14:42 03/17/2003/18/2021 CBC w/ auto diff NRBC cloth handler Not Available [facility] ([facility]) [address] [facility] [address], [place], [address], 03/18/2021 06:14:42 03/17/2003/18/2021 CBC w/ auto diff hematology comments: cloth handler Not Available [facility] ([facility]) [address] [facility] [address], [place], [address], 03/18/2021 06:14:42 03/17/2003/18/2021 TSH + free T4, serum TSH 1.340 uIU/m L 0.450- 4.500 Not Available [facility] ([facility]) [address] [facility] [address], [place], [address], 03/18/2021 06:14:42 03/17/2003/18/2021 TSH + free T4, serum T4,free(dire ct) 1.19 NG/dL 0.82-1 .77 Not Available [facility] ([facility]) [address] [place], [address], 03/18/2021 06:14:42 03/17/20 21 03/18/2021 CMP, serum or plasm a glucose 87 mg/dL 65-99 Not Available [facility] ([facility]) [address] [place], [address], 03/18/2021 06:14:41 03/17/2003/18/2021 CMP, serum or plasm a BUN 12 mg/dL 6-24 Not Available [facility] ([facility]) [address] [place], [address], 03/18/2021 06:14:41 03/17/2003/18/2021 CMP, serum or plasm a creatinine 0.87 mg/dL 0.76-1 .27 Not Available [facility] ([facility]) [address] [place], [address], 03/18/2021 06:14:41 03/17/2003/18/2021 CMP, serum or plasm a eGFR if nonafricn AM 106 mL/mi n/1.7 3 >59 Not Available [facility] ([facility]) [address] [place], [address], 03/18/2021 06:14:41 03/17/2003/18/2021 CMP, serum or plasm a eGFR if africn AM 122 mL/mi n/1.7 3 >59 Lab jin curre ntly repor ts eGFR in compl iance with the curre nt recom menda tions of the [facility] [employer] [employer] ation . [facility] will updat e repor ting as new guide lines are publi shed from the NKF-A SN Task force . Not Available [facility] ([facility]) [address] [place], [address], 03/18/2021 06:14:41 03/17/20 21 03/18/2021 CMP, serum or plasm a BUN/creatini ne ratio 14 9-20 Not Available [facility] ([facility]) [address] [place], [address], 03/18/2021 06:14:41 03/17/20 21 03/18/2021 CMP, serum or plasm a sodium 138 mmol/ L 134-14 4 Not Available [facility] ([facility]) [address] [place], [address], 03/18/2021 06:14:41 03/17/20 21 03/18/2021 CMP, serum or plasm a potassium 4.1 mmol/ L 3.5-5. 2 Not Available [facility] ([facility]) [address] [place], [address], 03/18/2021 06:14:41 03/17/20 21 03/18/2021 CMP, serum or plasm a chloride 100 mmol/ L 96-106 Not Available [facility] ([facility]) [address] [place], [address], 03/18/2021 06:14:41 03/17/20 21 03/18/2021 CMP, serum or plasm a carbon dioxide, total 24 mmol/ L 20-29 Not Available [facility] ([facility]) [address] [place], [address], 03/18/2021 06:14:41 03/17/2003/18/2021 CMP, serum or plasm a calcium 9.6 mg/dL 8.7-10 .2 Not Available [facility] ([facility]) [address] [place], [address], 03/18/2021 06:14:41 03/17/20 21 03/18/2021 CMP, serum or plasm a protein, total 7.6 g/dL 6.0-8. 5 Not Available [facility] ([facility]) [address] [facility] [place], [address], 03/18/2021 06:14:41 03/17/2003/18/2021 CMP, serum or plasm a albumin 4.7 g/dL 4.0-5. 0 Not Available [facility] ([facility]) [address] [facility] [place], [address], 03/18/2021 06:14:41 03/17/20 21 03/18/2021 CMP, serum or plasm a globulin, total 2.9 g/dL 1.5-4. 5 Not Available [facility] ([facility]) [address] [facility] [place], [address], 03/18/2021 06:14:41 03/17/2003/18/2021 CMP, serum or plasm a A/G ratio 1.6 1.2-2. 2 Not Available [facility] ([facility]) [address] [facility] [place], [address], 03/18/2021 06:14:41 03/17/2003/18/2021 CMP, serum or plasm a bilirubin, total 0.5 mg/dL 0.0-1. 2 Not Available [facility] ([facility]) [address] [facility] [place], [address], 03/18/2021 06:14:41 03/17/2003/18/2021 CMP, serum or plasm a alkaline phosphatase 73 IU/L 39-117 Not Available [facility] ([facility]) [address] [facility] [place], [address], 03/18/2021 06:14:41 03/17/2003/18/2021 CMP, serum or plasm a AST (SGOT) 31 IU/L 0-40 Not Available [facility] ([facility]) [address] [place], [address], 03/18/2021 06:14:41 03/17/2003/18/2021 CMP, serum or plasm a ALT (SGPT) 38 IU/L 0-44 Not Available [facility] ([facility]) [address] [facility] [address], [place], [address], 03/18/2021 06:14:41 Result Notes None recorded. Problems Name Problem SNOMED Code Status Onset Date Resolution Date Notes Provider Name and Address Organization Details Recorded Time Major depressive disorder 806509241 Active 2021 Not Available [facility] 3 20:57:56 Loss of hair 891361854 Active 2021 Not Available [facility] 3 20:57:56 Male hypogonadism 52942342 Active 2021 Not Available [facility] 3 20:57:56 Slowing of urinary stream 21053116 Active 2022 CHRISTEN Vasquez [address] [facility] [address], [place], [address] , [facility] [employer] 3 16:05:14 Problem Notes None recorded. Medical Equipment None Reported. Allergies No known drug allergies Medications Name Sig Start Date Stop Date Status Note LastModified by Organization Details LastModified Time prednisone 20 mg tablet take 3 tabs po daily x 2 days, thentake 2 tabs po daily x 2 days, thentake 1 tab po daily x 2 days, then1/2 tab po daily x 2 days active Not Available Not Available No t Available methylpredn isolone 4 mg tablets in a dose pack take as directed 03/06 completed Not Available Not Available Not Available bupropion HCl XL 300 mg 24 hr tablet, extended release TAKE 1 TABLET DAILY (DISCONTI NUE 150 MG) active Not Available Not Available No t Available bupropion HCl XL 150 mg 24 hr tablet, extended release TAKE 1 TABLET DAILY active Not Available Not Available No t Available testosteron e 20.25 mg/1.25 gram per pump act.(1.62 %) transdermal gel Apply by transderm al route for 30 days. 03/25 completed Not Available Not Available Not Available [employer] COVID-19 Antigen Home Test kit 03/22 completed Not Available Not Available Not Available Vitals Date Recorded Body mass index (BMI) Body height Oxygen saturation Heart rate Body temperature Body weight Systolic And Diastolic Provider Name and Address Organization Details Last Updated DateTime 1 28.3 kg/m2 177.8 cm 98 % 86 /min 97.5 [degF] 97724.1 3 g 130/90 mm[Hg] Not Available [facility] 3 20:57:39 Date Recorded Body height Body temperature Body mass index (BMI) Body weight Respiratory rate Oxygen saturation Heart rate Systolic And Diastolic Provider Name and Address Organization Details Last Updated DateTime 3 177.8 cm 97.5 [degF] 26.3 kg/m2 22571.4 g 16 /min 99 % 83 /min 128/82 mm[Hg] KARRIE Pal [place] [facility] 3 15:42:03 Date Recorded Body mass index (BMI) Body height Oxygen saturation Heart rate Respiratory rate Body temperature Body weight Systolic And Diastolic Provider Name and Address Organization Details Last Updated DateTime 2 26.9 kg/m2 177.8 cm 97 % 105 /min 16 /min 96.8 [degF] 45902.4 9 g 130/80 mm[Hg] Not Available [facility] 3 20:57:40 Social History Question Answer Notes LastModified by Organizat ion Details LastModified Time Tobacco Smoking Status Former Smoker Not Available [facility] 01/09/2023 20:57:24 What Is Your Level Of Caffeine Consumption? Moderate [id number] Information not available 01/09/2023 How Much Tobacco Do You Chew? None [id number] Information not available 01/09/2023 In The 14 Days Before Symptom Onset, Have You Had Close Contact With A Laboratory-confirm ed COVID-19 While That Case Was Ill? No [id number] Information not available 01/09/2023 In The 14 Days Before Symptom Onset, Have You Had Close Contact With A Person Who Is Under Investigation For COVID-19 While That Person Was Ill? No [id number] Information not available 01/09/2023 What Type Of Diet Are You Following? REGULAR [id number].[id number] 6688 Information not available 01/09/2023 Which Illicit Or Recreational Drugs Have You Used? None [id number] Information not available 01/09/2023 Have There Been Any Changes To Your Family Or Social Situation? No MIGRATION.[id number] 6903 Information not available 01/09/2023 Do You Use Insect Repellent Routinely? No [email or web address] Information not available 03/22/2023 What Is Your Relationship Status? [id number] Information not available 01/09/2023 Do You Use Your Seat Belt Or Car Seat Routinely? Yes [id number] Information not available 01/09/2023 Do You Have Smoke And Carbon Monoxide Detectors In Your Home? Yes [id number].[id number] 6578 Information not available 01/09/2023 How Much Tobacco Do You Smoke? No [id number].694121 3750 Information not available 01/09/2023 Do You Use Sunscreen Routinely? Yes [id number].[id number] 7959 Information not available 01/09/2023 Have You Recently Traveled Abroad? No MIGRATION.101730 1028 Information not available 01/09/2023 Do You Have Any Dietary Restrictions? No MIGRATION.830846 6147 Information not available 01/09/2023 Sex: Unknown Functional Status Question Answer Note LastModified by Organizat ion Details LastModified Time Do you use any illicit or recreational drugs? No [id number].[id number] 5576 Information not available 01/09/2023 Do you or have you ever used any other forms of tobacco or nicotine? No MIGRATION.[id number] 4120 Information not available 01/09/2023 What is your level of alcohol consumption? Moderate MIGRATION.351257 7628 Information not available 01/09/2023 Do you or have you ever used smokeless tobacco? Never used smokeless tobacco MIGRATION.981286 1334 Information not available 01/09/2023 Are you currently employed? 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 Never used electronic cigarettes MIGRATION.566921 6581 Information not available 01/09/2023 What is your exercise level? None MIGRATION.461632 6214 Information not available 01/09/2023 Mental Status None recorded. Family History Relationship Description Onset Age of this Age Resolved Age Notes LastModified by Organization Details LastModified Time Father Heart disease [id number] Not available 01/09/2023 20:57:29 Maternal Grandmother Degenerative disorder of macula [id number].287 [id number] Not available 01/09/2023 20:57:30 Maternal Grandfather Myocardial infarction MIGRATION.763 [id number] Not available 01/09/2023 20:57:30 Paternal Grandfather Heart disease [id number].348 [id number] Not available 01/09/2023 20:57:30 Paternal Grandfather Diabetes mellitus MIGRATION.771 [id number] Not available 01/09/2023 20:57:30 Paternal Grandmother Thyroiditis MIGRATION.03 0 [id number] Not available 01/09/2023 20:57:30 Medical History Condition Response ANXIETY DISORDER Y BACK / NECK PROBLEMS Y Past Encounters Encounter ID Performer Location Encounter Start Date Encounter Closed Date Diagnosis/Indication Diagnosis SNOMED-CT Code Diagnosis ICD10 Code Diagnosis IMO Codes Diagnosis Note [id number] CHRISTEN Vasquez [facility] [place] [address] [place] [address] 03/06/2021 00:00:00 03/07/2021 23:42:45 [id number] Duke Anderson MD [facility] [place] [address] [place] [address] 05/29/2022 00:00:00 06/09/2022 21:23:07 [id number] CHRISTEN Vasquez [facility] [place] [address] [place] [address] 03/25/2023 15:35:36 03/25/2023 16:14:53 Slowing of urinary stream 12686684 R39.12 screening PSA ordered and Ua w/cx. pt shoud see urology again Male hypogonadism 114575 06 E29.1 screening testostero ne due. Health Concerns Section Related Observation LastModified by Organization Detai ls LastModified Time None Recorded Concern Status LastModified by Organization Details LastModified Time None Recorded Advance Directives Directive None Recorded Payers Insurance Date Sequence Insurance Name Policy Number Policy Quarles Covered Member ID Quarles Member ID Guarantor Name 05/26/2023 1 [facility] [id number] [employer] [id number] [employer] Notes Date Note Type Note Provider Name and Address Organization Details Recorded Time 03/25/2023 text/html Lower Urinary Tr act Symptoms (LUTS)Reported by PatientHPIFor associated symptoms, patient reportsweak force of streambut reportsno abdominal pain,no groin pain,no flank pain,no low back pain,no chills,no fever,no constipation,no diarrhea,no nausea,no vomiting,no temperaure,no straining,no urgency,no frequency,no dysuria,no nocturia,no urine odor,no gross hematuria,normal erection,no hematospermia,no ejaculatory pain, andno penile pain. For location, patient reportsbladder.Pt states the past couple months he has noticed that he has had little urine output or weaker stream of urine. No blood in urine or frequency. CHRISTEN Vasquez [address] [facility] [facility] [address], [place], [address], [place] [facility] [employer] 04/10/2023 23:30:26
== END 2025-10-11 13:45 | disposition home or self-care (01) ==
PROVIDERS: PCP Physician Assistant; Referring Provider Physician Assistant; Visit Provider Internal Medicine Gastroenterology
PROC: 0DJD8ZZ Inspection of Lower Intestinal Tract, Via Natural or Artificial Opening Endoscopic (ICD-10-PCS; CPT 45378; principal; 2025-10-11 13:00)
DX: Z12.11 Encounter for screening for malignant neoplasm of colon (principal); Z83.719 Family history of colon polyps, unspecified
CPT/HCPCS: 45378